=== PATIENT | male | born 1985 | race Caucasian/White ===

== ENCOUNTER 2017-03-19 00:45 | Emergency (ER) | payer MEDICAID ==
[2017-03-19 00:52] VITALS: TEMP 98.6
[2017-03-19] MEDS ORDERED: ACETAMINOPHEN 500 MG TAB ONE (01:14)
[2017-03-19] MEDS ORDERED: ACETAMINOPHEN 500 MG TAB PO ONE (01:15)
--- NOTE | 2017-03-19 01:26 | EDPHY ---
H & P Stated Complaint: L collar bone/shoulder pain Time Seen by Provider: 03/19/17 01:21 HPI/ROS: HPI The patient presents with left-sided clavicular pain which began over the last several hours. He says that he had an operation on his clavicle about 4 months ago after he broke it in several places. This was complicated by some sort of bacteremia [place]. As he did not re -injure himself today but is having bad pain which began that is clavicle and travels to his shoulder. It is moderate in severity and achy in nature. It is worse when he moves shoulder. REVIEW OF SYSTEMS Constitutional: No fever, no chills. Eyes: No discharge. ENT: No sore throat. Cardiovascular: No chest pain, no palpitations. Respiratory: No cough, no shortness of breath. Gastrointestinal: No abdominal pain, no vomiting. Genitourinary: No hematuria. Musculoskeletal: No back pain. Skin: No rashes. Neurological: No headache. PMHx: Bipolar disorder Soc Hx: Alcohol use, lives in [place] with roommates PHYSICAL General Appearance: Alert, no distress Eyes: Pupils equal and round no pallor or injection ENT, Mouth: Mucous membranes moist Respiratory: There are no retractions, lungs are clear to auscultation Cardiovascular: Regular rate and rhythm Gastrointestinal: Abdomen is soft and non-tender, no masses, bowel sounds normal Neurological: A&O, moves all extremities Skin: Warm and dry, no rashes Musculoskeletal: Neck is supple non tender, left clavicle is slightly tender to palpation, there is no overlying skin change, full range of motion of shoulder Extremities: symmetrical, full range of motion Psychiatric: Patient is oriented X 3, there is no agitation Source: Patient Exam Limitations: No limitations - Personal History Current Tetanus/Diphtheria Vaccine: Yes Tetanus Vaccine Date: 2006 - Medical/Surgical History Hx Asthma: Yes Hx Chronic Respiratory Disease: No Hx Diabetes: No Hx Cardiac Disease: No Hx Renal Disease: No Hx Cirrhosis: No Hx Alcoholism: Yes Hx HIV/AIDS: No Hx Splenectomy or Spleen Trauma: No Other PMH: PMHx: bipolar, depression, ETOH abuse. PSHx: collar bone sx - Social History Smoking Status: Current every day smoker Constitutional: Initial Vital Signs Temperature (C) 37 C 03/19/17 00:47 Heart Rate 113 H 03/19/17 00:47 Respiratory Rate 18 03/19/17 00:47 Blood Pressure 128/74 H 03/19/17 00:47 O2 Sat (%) 97 03/19/17 00:47 O2 Delivery Mode Room Air Allergies/Adverse Reactions: Penicillins Allergy (Severe, Verified 03/19/17 00:51) Anaphylaxis aspirin Allergy (Verified 03/19/17 00:51) banana Allergy (Verified 03/19/17 00:51) Home Medications: Medication Instructions Recorded ARIPIPRAZOLE [Abilify] 2 mg PO DAILY 06/29/10 buPROPion [Wellbutrin] 100 mg PO 11/04/15 Vistaril 03/19/17 Medical Decision Making - Diagnostics Imaging Results: Left clavicle x-ray demonstrates old comminuted fracture, interpreted by me, radiology interpretation is pending. Differential Diagnosis: 31-year-old male with history of what sounds like ORIF of his left clavicle requiring revision because of bacterial infection several months ago now presents with pain. His exam is relatively unremarkable. He has no overlying edema or erythema to the skin of his left chest wall. He has good range of motion of the shoulder. I suspect she is having some postoperative pain, to be expected after his procedure. X-ray was obtained and did show old healing clavicle fracture. He will be discharged home with instructions for ibuprofen and is agreement with this plan. Other diagnoses considered include shoulder strain and clavicle fracture. - Data Points Medications Given: Discontinued Medications Acetaminophen (Tylenol) 1,000 mg PO EDNOW ONE Stop: 03/19/17 01:16 Last Admin: 03/19/17 01:16 Dose: 1,000 mg Departure - Departure Disposition: Home, Routine, Self-Care Clinical Impression: Closed left clavicular fracture Qualifiers: Encounter type: sequela Clavicle location: shaft Fracture alignment: displaced Qualified Code(s): S42.022S - Displaced fracture of shaft of left clavicle, sequela Condition: Good Instructions: Musculoskeletal Pain (ED) Additional Instructions: I recommend you take ibuprofen 400 mg with acetaminophen 650 mg every 6 hr as needed for pain. I have given you information for local orthopedist whom you can follow up with. Referrals: [facility],. [Clinic] - As per Instructions Refugio Mckinley MD [Medical Doctor] - As per Instructions
[2017-03-19 02:26] VITALS: BP 121/70; PULSE 110; RESP 16; O2SAT 98
== END 2017-03-19 02:26 | disposition home or self-care (01) ==
DX: S42.022A Displaced fracture of shaft of left clavicle, initial encounter for closed fracture (principal); F17.200 Nicotine dependence, unspecified, uncomplicated; J45.909 Unspecified asthma, uncomplicated; X58.XXXA Exposure to other specified factors, initial encounter